=== PATIENT | female | born 2005 | race Caucasian/White ===

== ENCOUNTER → 2023-11-01 | Outpatient (CLI) | payer MEDICAID, SELFPAY ==
[2023-11-01 15:18] LABS: Hematocrit 34.9 % (37-47); Mean Corp Hgb Conc 31.5 g/dL (32-36); Mean Corpuscular Hgb 27.4 pg (27.0-32.0); Mean Corpuscular Volume 86.8 fL (81-99); Mean Platelet Vol. 9.8 fl (6.2-12.0); Platelet Count 249 K/mm3 (150-450); RBC Distribution Width CV 14.7 % (11.6-14.6); RBC Distribution Width SD 46.6 fl (35.1-43.9); Red Blood Count 4.02 M/mm3 (4.2-5.4); White Blood Count 6.8 K/mm3 (4.4-11.0)
[2023-11-01 16:11] LABS: ALB/GLOB Ratio 0.6 RATIO (0.9-2.4); AST(SGOT) 15 U/L (15-37); Alanine Aminotransfer ALT/SGPT 18 U/L (13-56); Albumin, Serum 2.6 g/dL (3.2-5.0); Alkaline Phosphatase 128 U/L (45-117); Anion Gap 7 (5-15); BUN 7 mg/dL (7-18); BUN/Creat Ratio 13.7 RATIO (10-20); Calcium,Total 8.6 mg/dL (8.5-10.1); Chloride 107 mmol/L (98-107); Cholesterol 199 mg/dL (200); Creatinine, Serum 0.51 mg/dL (0.55-1.02); EST Glomerular Filtration Rate 162 mL/min (>60); Est Glom Filt Rate - Afr Amer 196 mL/min (>60); Globulin 4.3 g/dL (2.2-4.2); Glucose 92 mg/dL (74-106); High Density Lipoprotein 58 mg/dL; Potassium 4.1 mmol/L (3.5-5.1); Protein, Total 6.9 g/dL (6.4-8.2); Sodium Level 139 mmol/L (136-145); T4 Total, Thyroxin 16.5 ug/dL (4.8-13.9); Thyroid Stim Hormone (TSH) 1.85 uIU/mL (0.358-3.74); Triglycerides 87 mg/dL; Very Low Density Lipoprotein 17 mg/dL (5-40)
== END | disposition home or self-care (01) ==
LOC: BIMLAB 12:17
PROVIDERS: PCP Physician Assistant; Referring Provider Physician Assistant; Visit Provider Physician Assistant
DX: Z00.00 Encounter for general adult medical examination without abnormal findings (principal); E04.0 Nontoxic diffuse goiter
CPT/HCPCS: 36415; 80053; 80061; 84436; 84443; 85027

== ENCOUNTER 2023-12-20 10:05 | Outpatient (RCR) | payer MEDICAID, SELFPAY ==
--- NOTE | 2023-12-20 12:44 | HP.PTEVAL_ITS ---
Patient's Visit Information Visit Information Visit Information: KENNETH BHATIA is a 18 year old F referred to Physical Therapy by SUSAN Clarke with a diagnosis of PAIN IN IN RIGHT KNEE ,PATELLAOFEMORAL DISORDER. Date of Evaluation: 12/20/23 Physical Therapist: Gareth Daniels, PT, Cert MDT, OCS Visit Plan Frequency: 2x /Week Duration: 4 Weeks Plan: PATIENT IS 30 WEEKS PT INTERVENTIONS STRENGTHENING QUADS/HAMS/HIP OPEN/CLOSED CHAIN ,FUNCTIONAL STRENGTHENING AND FLEXABILITY ,CP Subjective Subjective: This 18 y/o female presents to physical therapy with right knee. Patient has had right knee pain for 3 weeks no predisposing factors. Seen Dr recommended over counter medication and brace. Patient is 30 weeks . Patient located lateral knee . Described as burning pain.Patient gets burning pain in knee. Aggravating bending ,kneeling and standing at work. Alleviating factor rest. Denies paresthesia/tingling. Patient felt a pop occasionally when bending knee. Patient sleeping good at night. Patient condition affects QOL and function /job demands. Patient goals to decrease pain. SOCIAL: [employer] Pain Right Knee: Pain Intensity (Out of 10): 10 Pain Intensity Range: 10 Comment: worst Objective Objective: POSTURE: mild forward posture,genu recurvatum PALPATION: tender lateral joint line NEURO: denies paresthesia/tingling AROM: 0-130 degrees supine flexion MMT: ( peak force) quads 31.1,hamstrings 29.6 ,hip abduction 28.8 QUAD CONTRACTION: lateral deviation GAIT: reciprocal pattern FLEXABILITY: hamstring min limited STAIRS: alternating stairs Special Tests L Knee Sarah - Meniscus: Negative L Knee Apley - Meniscus: Negative L Knee Hi - ACL: Negative L Knee Anterior Drawer - ACL: Negative L Knee Posterior Drawer - PCL: Negative L Knee Posterior Sag - PCL: Negative L Knee Valgus - MCL: Negative L Knee Varus - LCL: Negative L Knee Patellar Apprehension - PFS: Positive L Knee Patellar Grind - PFS: Positive Balance/Special Test Scores Lower Extremity Functional Score: 43 Goals Goal 1:: Patient to be I with HEP for knee Goal Time Frame: 4-6 Weeks Goal 2:: Patient to demonstrate 50% improvement with improved function and less pain. Goal Time Frame: 4-6 Weeks Goal 3:: Patient to improve peak force quads/hams /hip by 5 # strength to improve function Goal Time Frame: 4-6 Weeks Goal 4:: Patient to improve LFES score by 5 points to improve QOL and function Goal Time Frame: 4-6 Weeks Goal 5:: Patient to be able perform ADLS and housework tasks with less pain and improved function Goal Time Frame: 4-6 Weeks Rehabilitation Potential Physical Therapy Diagnosis: Patient developed right knee pain with patellofemoral syndrome with pain ,weakness impairs job demands and functional tasks thus benefit from skilled PT Rehabilitation Potential: Good Anticipated Interventions Patient/Client Instruction: Educate patient on: Condition and Plan of Care For the Purpose of:: To decrease pain, To increase ROM, To improve muscle performance and motor function, To increase tolerance to activity/condition/position, To improve ability of physical actions for home/community/work/leisure, To improve health of tissue, To decrease soft tissue restriction, To increase flexibility/ROM and To reduce risk of recurrence Therapeutic Exercise to Include: Strength training, Endurance training, Flexibilty training and Active ROM Comment: HIP/KNEE/HIP For the Purpose of:: To decrease pain, To increase ROM, To improve muscle performance and motor function, To increase tolerance to activity/co ndition/position, To improve ability of physical actions for home/community/work/leisure, To improve health of tissue, To decrease soft tissue restriction, To increase flexibility/ROM and To improve balance Text: Thank you for the opportunity to evaluate your patient. For Medicare and Medicare HMO plans, please review the plan of care and approve it. It will need to be FAXED BACK to us at [phone] for Medicare purposes. For Medicare only, by signing this I certify the plan of care. Please let me know if there are questions or concerns regarding this plan of care. Physician Signature: Date:
--- NOTE | 2024-03-15 13:13 | HP.PTDCNRP_ITS ---
Patient Information Patient Information: KENNETH BHATIA was seen in my office for initial evaluation on 12/20/23. The following Plan of Care was established for this patient: POC Established Initial Frequency: 2x /Week Initial Duration: 4 Weeks Anticipated Interventions Patient/Client Instruction: Educate patient on: Condition and Plan of Care For the Purpose of:: To decrease pain, To increase ROM, To improve muscle performance and motor function, To increase tolerance to activity/condition/position, To improve ability of physical actions for home/community/work/leisure, To improve health of tissue, To decrease soft tissue restriction, To increase flexibility/ROM and To reduce risk of recurrence Therapeutic Exercise to Include: Strength training, Endurance training, Flexibilty training and Active ROM For the Purpose of:: To decrease pain, To increase ROM, To improve muscle performance and motor function, To increase tolerance to activity/condition/position, To improve ability of physical actions for home/community/work/leisure, To improve health of tissue, To decrease soft tissue restriction, To increase flexibility/ROM and To improve balance Last Seen Last Seen: This patient was last seen in our office . Pertinent comments regarding their P hysical therapy will appear below: Patient was seen for PT for knee pain with HEP At this point I will be discontinuing this patient from physical therapy. I would be happy to see this patient again in the future if found appropriate by the physician. Thank you! Gareth Daniels, PT, Cert MDT, OCS Balance/Gait/Functional tests Balance/Special Test Scores Lower Extremity Functional Score: 43
== END 2023-12-20 19:00 | disposition home or self-care (01) ==
LOC: PT 10:05
PROVIDERS: PCP Physician Assistant; Referring Provider Physician Assistant; Visit Provider Physician Assistant
DX: M22.2X9 Patellofemoral disorders, unspecified knee (principal); M25.561 Pain in right knee
CPT/HCPCS: 97162

== ENCOUNTER → 2024-05-03 | Outpatient (CLI) | payer MEDICAID, SELFPAY ==
--- NOTE | 2024-05-03 11:49 | RAD_ITS ---
STUDY: X-RAY - LUMBAR SPINE REASON FOR EXAM: Female, 19 years old. back pain TECHNIQUE: 2 view(s) of the lumbar spine were obtained. COMPARISON: None FINDINGS: Normal lumbar lordosis. There is no substantial scoliosis. There is a normal alignment of the vertebrae. Normal vertebral bodies and endplates. Normal disc space heights. There is no demonstrated fracture. The soft tissue structures are unremarkable. RAD/Lumbar Spine 2 or 3 Views IMPRESSION: Normal x-ray examination of the lumbar spine. Electronically Signed: Martir Oro MD at 23:39 EDT ,
== END | disposition home or self-care (01) ==
LOC: MTRAD 11:49
PROVIDERS: PCP Physician Assistant; Referring Provider Physician Assistant; Visit Provider Physician Assistant
DX: M54.9 Dorsalgia, unspecified (principal); G89.29 Other chronic pain
CPT/HCPCS: 72100

== ENCOUNTER 2024-06-06 12:30 | Outpatient (RCR) | payer MEDICAID, SELFPAY ==
--- NOTE | 2024-05-14 13:47 | HP.PTEVAL ---
Patient's Visit Information Visit Information Visit Information: KENNETH BHATIA is a 19 year old F referred to Physical Therapy by SUSAN Clarke with a diagnosis of Chronic back pain. Date of Evaluation: 05/14/24 Physical Therapist: CIRILO Layton Visit Plan Frequency: 2x /Week Duration: 2 Months Plan: 2X/ 8 weeks for neutral spine core stability exercises, postural exercises, LE exercises with abdominal bracing with HEP HEP: PT and PT with pillow squeeze Subjective Subjective: Pt has had back pain since age 15-16. She was moving furniture and caused 1 disc bulge and 1 HD. She has had MRI and a spinal injection and did not do anything. She has some weight loss and that helped a little bit but her back has gotten worse since her epidural. Her epidual was February 21 of this year. Her current sx are spasms in her mid back to LB and tightening of her back and pressure stabbing pain in her back. She does get pain down B hips and that comes and goes. She has N&T in hips and side of legs. She does not sleep well at night due to back pain. She saw her PCP and got x-rays but has not heard results of them. She went to Urgent Care due to being in a lot of pain. They did not do anything other than a temp dose of pain meds. Her PCP is Rashawn Altamirano. She has a hard time holding her son for more than 10 min or standing and doing the dishes. 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 Pain Back pain: Pain Intensity (Out of 10): 3 B hip pain: Pain Intensity (Out of 10): 4 Objective Objective: Gait: walks with decrease hip ext and stride length Trunk AROM: flexion 75% (increase pain), SB R 50% (increase pain) and SB L 75%, Rot R 75 and L 75%, ext 50% (increase pain) Able to walk on heels and toes without any issue Patella DTR's 0/3 Posture: sits with increase PPT and rounded shoulders LE MMT: R hip flex 11.7 and L 12.5 R knee ext 17.6 and L 17.4 R knee flex 11 and L 10.6 R hip abd 4-/5 B R hip add 4-/5 and increase pain on the R side of her groin SLUMP test: Negative B SLR test: - B Tight B hip flexors B Pt is able to do a bridge 3/4 normal ROM Balance/Special Test Scores Oswestry Low Back Score: 24 Goals Goal 1:: I HEP Goal Time Frame: 6-8 Weeks Goal 2:: Improve back pain by 50% with ADL's Goal Time Frame: 6-8 Weeks Goal 3:: Increase pain free trunk AROM (at the time of the eval: Trunk AROM: flexion 75% (increase pain), SB R 50% (increase pain) and SB L 75%, Rot R 75 and L 75%, ext 50% (increase pain) Goal Time Frame: 6-8 Weeks Anticipated Interventions Patient/Client Instruction: Educate patient on: Condition and Plan of Care For the Purpose of:: To decrease pain, To increase ROM, To improve nutrient delivery to tissue, To improve muscle performance and motor function, To improve ability to perform ADL's, To increase tolerance to activity/condition/position, To improve performance and independence with ADL's, To decrease level of supervision to perform tasks, To improve ability of physical actions for home/community/work/leisure, To improve gait and locomotor functions, To improve health of tissue, To decrease soft tissue restriction and To improve endurance Therapeutic Exercise to Include: Strength training, Endurance training, Postural training, Flexibilty training, Neuromotor development, Active ROM and Dynamic Lumbar Stabilization For the Purpose of:: To decrease pain, To increase ROM, To improve nutrient delivery to tissue, To improve muscle performance and motor function, To improve ability to perform ADL's, To improve ability of physical actions for home/community/work/leisure, To improve health of tissue, To decrease soft tissue restriction and To increase flexibility/ROM IF ES: Yes Cryotherapy (ice pack, ice massage): Yes Thermo therapy (hot pack): Yes For the Purpose of:: To decrease pain, To increase ROM, To improve nutrient delivery to tissue and To improve muscle performance and motor function Text: Thank you for the opportunity to evaluate your patient. For Medicare and Medicare HMO plans, please review the plan of care and approve it. It will need to be FAXED BACK to us at [phone] for Medicare purposes. For Medicare only, by signing this I certify the plan of care. Please let me know if there are questions or concerns regarding this plan of care. Physician Signature: Date:
--- NOTE | 2024-08-13 08:12 | HP.PT.NRP ---
Patient Information Patient Information: KENNETH BHATIA was seen in my office for initial evaluation on 05/14/24. The following Plan of Care was established for this patient: POC Established Initial Frequency: 2x /Week Initial Duration: 2 Months Anticipated Interventions Patient/Client Instruction: Educate patient on: Condition and Plan of Care For the Purpose of:: To decrease pain, To increase ROM, To improve nutrient delivery to tissue, To improve muscle performance and motor function, To improve ability to perform ADL's, To increase tolerance to activity/condition/position, To improve performance and independence with ADL's, To decrease level of supervision to perform tasks, To improve ability of physical actions for home/community/work/leisure, To improve gait and locomotor functions, To improve health of tissue, To decrease soft tissue restriction and To improve endurance Therapeutic Exercise to Include: Strength training, Endurance training, Postural training, Flexibilty training, Neuromotor development, Active ROM and Dynamic Lumbar Stabilization For the Purpose of:: To decrease pain, To increase ROM, To improve nutrient delivery to tissue, To improve muscle performance and motor function, To improve ability to perform ADL's, To improve ability of physical actions for home/community/work/leisure, To improve health of tissue, To decrease soft tissue restriction and To increase flexibility/ROM IF ES: Yes Cryotherapy (ice pack, ice massage): Yes Thermo therapy (hot pack): Yes For the Purpose of:: To decrease pain, To increase ROM, To improve nutrient delivery to tissue and To improve muscle performance and motor function Last Seen Last Seen: This patient was last seen in our office 06/06/24. Pertinent comments regarding their Physical therapy will appear below: GENE PT At this point I will be discontinuing this patient from physical therapy. I would be happy to see this patient again in the future if found appropriate by the physician. Thank you! Magda Britton, MPT Balance/Gait/Functional tests Balance/Special Test Scores Oswestry Low Back Score: 24
== END 2024-06-06 19:00 | disposition home or self-care (01) ==
LOC: PT 12:30
PROVIDERS: PCP Physician Assistant; Referring Provider Physician Assistant; Visit Provider Physician Assistant
DX: M54.9 Dorsalgia, unspecified (principal); G89.29 Other chronic pain
CPT/HCPCS: 97110; 97161